=== PATIENT | male | born 1985 | race Caucasian/White ===

== ENCOUNTER 2016-06-25 13:28 | Outpatient (CLI) | payer OTHER | END 2016-06-25 13:29 | disposition home or self-care (01) | DX: G47.33 Obstructive sleep apnea (adult) (pediatric) (principal) ==

== ENCOUNTER 2016-08-07 13:06 | Outpatient (CLI) | payer OTHER | END 2016-08-07 13:07 | disposition home or self-care (01) | DX: G47.33 Obstructive sleep apnea (adult) (pediatric) (principal) ==

== ENCOUNTER 2016-10-16 13:12 | Outpatient (CLI) | payer OTHER | END 2016-10-16 13:13 | disposition home or self-care (01) | LOC: SC 13:12 | PROVIDERS: ATTEND Nurse Practitioner Family | DX: G47.33 Obstructive sleep apnea (adult) (pediatric) (principal) | CPT/HCPCS: 99212; 99214 ==

== ENCOUNTER 2018-03-20 20:40 | Emergency (ER) | payer OTHER ==
--- NOTE | 2018-03-20 22:50 | ED Physician Documentation ---
PD HPI HEENT - Stated complaint Stated Complaint: FACE SWELLING - Chief complaint Chief Complaint: Heent - History obtained from History obtained from: Patient - History of Present Illness Timing - onset: How many days ago (2) Timing - duration: Days Timing - details: Gradual onset, Constant Pain level now: 4 Location: Other (right periorbit) Associated symptoms: No: Fever Similar symptoms before: Has not had sx before Recently seen: Not recently seen - Additional information Additional information: c/o 2 days gradual onset, progressive swelling, tenderness of right supraorbit Review of Systems Constitutional: reports: Reviewed and negative Eyes: reports: Other (right supraorbital pain, swelling). denies: Loss of vision, Decreased vision, Photophobia, Discharge PD PAST MEDICAL HISTORY - Past Medical History Cardiovascular: None Respiratory: None Endocrine/Autoimmune: None GI: None : None HEENT: None Psych: Post traumatic stress disorder Musculoskeletal: None Derm: Other - Past Surgical History Past Surgical History: No General: Appendectomy - Present Medications Home Medications: Ambulatory Orders Medication Instructions Recorded Confirmed Cephalexin [Keflex] 500 mg PO Q6HR #27 capsule 03/20/18 Sertraline [Zoloft] 150 mg PO DAILY 03/20/18 03/20/18 Sulfamethox/Trimeth 800/160 1 each PO BID #13 tablet 03/20/18 [Bactrim Ds 800/160] - Allergies Allergies/Adverse Reactions: Allergies Allergy/AdvReac Type Severity Reaction Status Date / Time latex Allergy Rash Verified 03/20/18 20:47 tetanus Allergy Unknown Uncoded 03/20/18 20:47 - Social History Does the pt smoke?: Yes Smoking Status: Current every day smoker Does the pt drink ETOH?: Yes Does the pt have substance abuse?: No - Immunizations Immunizations are current?: Yes PD ED PE NORMAL - Vitals Vital signs reviewed: Yes - General General: Alert and oriented X 3, No acute distress, Well developed/nourished - HEENT HEENT: PERRL, EOMI PD ED PE EXPANDED - HEENT HEENT Visual: 1 - rash (faint erythema), swelling, tenderness Results - Vitals Vitals: Vital Signs - 24 hr 03/20/18 03/20/18 20:44 23:22 Temperature 36.4 C L Heart Rate 77 68 Respiratory 16 18 Rate Blood Pressure 144/91 H 132/68 H O2 Saturation 97 98 Oxygen O2 Source Room air PD MEDICAL DECISION MAKING - ED course Complexity details: considered differential, d/w patient ED course: suspect small, focal abscess; can palpate margins, and it is less than 1cm diameter, very small and thus will not attempt I+D at this time. will try PO abx. there is a small, crusted raised papule at the medial margin of the eyebrow, raising possibility of shingles, but would not diagnose and treat as such with only these two lesions Departure - Departure Disposition: 01 Home, Self Care Clinical Impression: Periorbital cellulitis of right eye Condition: Good Instructions: ED Cellulitis Facial, ED Cellulitis Lucy Orbital Follow-Up: Edison Gómez DO [Primary Care Provider] - (3-4 days if not improving) Prescriptions: Cephalexin [Keflex] 500 mg PO Q6HR #27 capsule Sulfamethox/Trimeth 800/160 [Bactrim Ds 800/160] 1 each PO BID #13 tablet Discharge Date/Time: 03/20/18 23:23
[2018-03-20] MEDS ORDERED: SULFAMETH/TRIMETH DS 800/160 MG TABLET PO STA (23:09)
[2018-03-20] MEDS ORDERED: cephALEXin 250 MG CAPSULE PO STA (23:09)
[2018-03-20 23:22] VITALS: BP 132/68
== END 2018-03-20 23:23 | disposition home or self-care (01) ==
LOC: ED 20:40
DX: L03.213 Periorbital cellulitis (principal); F17.200 Nicotine dependence, unspecified, uncomplicated
CPT/HCPCS: 99283; A9270

== ENCOUNTER 2018-12-09 13:39 | Outpatient (CLI) | payer OTHER | END 2018-12-09 13:40 | disposition home or self-care (01) | LOC: SC 13:39 | PROVIDERS: ATTEND Nurse Practitioner Family | DX: G47.33 Obstructive sleep apnea (adult) (pediatric) (principal) | CPT/HCPCS: 99212; 99214 ==

== ENCOUNTER 2021-04-19 08:27 | Outpatient (CLI) | payer OTHER ==
[2021-04-19 09:08] VITALS: BP 140/87
--- NOTE | 2021-04-19 09:08 | SLEEP CARE CONSULTATION ---
Information from patient questionnaire entered by Perry Miranda MA. I have reviewed and concur with the information entered by Perry Miranda MA. This document represents the service I personally performed and the decisions made by , Irma Menon ARNP. History of Present Illness Service Date and Time: 04/19/2021 0827 Previous diagnosis: Mild, Obstructive Sleep Apnea-Hypopnea Syndrome AHI: 5.1 (11/2018 [facility]) Reason for follow up: annual Equipment type: CPAP Equipment obtained from: [facility] Mask style: Nasal Mask brand: Respironics Backup mask available: Yes (old mask) Last cushion change: 1 month Prior sleep studies: Yes Year and Where: [facility], [place] 2015 Type of Sleep Study: Polysomnography HPI additional information: FABIOLA SZYMANSKI was diagnosed to have mild, AHI 5.1, obstructive sleep apnea- hypopnea syndrome and returned today for CPAP therapy annual follow-up. CPAP Compliance Data - Data Reviewed with Patient Average duration of nightly device use: 7 hours 9 minutes Compliance rate %: 98.3 Current pressure setting (cmH2O): 10-12 Average residual AHI: 1.0 Central apnea: 0.1 Obstructive apnea: 0.4 Average large leak: 5 seconds Subjective Patient concerns: reports: air blowing in eyes (occasional when rolling in bed, adjusment helps), mask leak noise, dry mouth, nose, throat (usually after working in ema environment). denies: aerophagia, mask discomfort, condensation in mask/hose, nasal congestion, epistaxis, other Observed to snore while using device: No Current pressure setting perceived as: comfortable On therapy, patient: reports: sleeping better, awakening more refreshed, being more awake and alert during the day, more rested overall. denies: drowsiness while driving Initial [place] Sleepiness Scale score: 14 Current [place] Sleepiness Scale score: 13 Allergies and Home Medications Home medication list reviewed: Yes (no changes) Review of Systems Review of systems same as previous: Yes (no changes) Physical Exam Vital signs obtained and entered by: MICHELLE Balderas Blood Pressure: 140/87 (left) Cuff size: wrist Heart Rate: 80 O2 Saturation: 97 (with mask) Height: 6 ft 2 in Weight: 225 lb (with boots ) Body Mass Index: 28.8 BMI Classification: Overweight Impression and Plan 1. Obstructive Sleep Apnea-Hypopnea Syndrome, mild, with good treatment compliance and good apnea control. On CPAP therapy, the patient has better sleep quality and is more rested overall. He occasionally gets a dry mouth but states this is usually when he has been working out in the ema her all day. He has a history of hayfever. He will shower before bed but find his mouth very dry the next morning. He does not normally use his humidifier, does not like heated air on his face. He was advised to use nasal saline before bed on these nights as this may be from allergies causing enough nasal congestion to cause some oral venting those night. He voiced understanding. Patient has a Dreamstation by [employer]. I informed the patient that [employer] has a recall on several devices like the patients machine. Patient was encouraged to register their device online with [employer] for the recall to see if their device is affected. If their device is affected they should start a claim. Patient denies any black particles seen in machine or hoses, any unusual odors coming from device. Patient has not experienced any physical symptoms such as upper airway irritation, headache, skin or eye irritation, asthma, nausea/vomiting, difficulty breathing or chest pain. If patient is not able to sleep due to waking up choking, gasping for air or other respiratory distress that they may decide to continue using it until it is either replaced or repaired. Since the patients current machine is at least 5 years old the patient is opting to update their device with a device that is not on the recall. Patient voiced understanding and agreement with plan. Patient's apnea severity and rationale for treatment to reduce apnea, improve sleep quality and reduce cardiovascular and cerebrovascular events was reviewed. I also reviewed the benefit of consistent device use of CPAP for PTSD and mood disorder. Patient was encouraged to lose weight for their overall health and to reduce apneas. * Continue auto CPAP pressure at 10-12 cmH2O * Update device * Update supplies * Notify me if snoring with mask or feeling that the pressure is too much or too little * Attempt to lose weight * Call this office if any problems using CPAP * Return for follow up one month after obtaining new device, or sooner if concerns arise Counseling Topics: Spare mask, Weight loss health impact Visit Type: In Office Time Spent with Patient (minutes): 24 Provider Statement: I spent 100% of the Face to Face Visit with the patient with greater than 50% spent counseling the patient and coordination of care.
== END 2021-04-19 08:28 | disposition home or self-care (01) ==
LOC: SC 08:27
PROVIDERS: ATTEND Nurse Practitioner Family
DX: G47.33 Obstructive sleep apnea (adult) (pediatric) (principal)
CPT/HCPCS: 99212; 99213

== ENCOUNTER 2023-06-06 21:33 | Emergency (ER) | payer OTHER ==
[2023-06-06 21:47] VITALS: BP 142/69; O2SAT 100
--- NOTE | 2023-06-06 22:06 | ED Physician Documentation ---
History of Present Illness - Stated complaint Stated Complaint: RT THUMB INJ - Chief complaint Chief Complaint: Ext Problem - History obtained from History obtained from: Patient - Additonal information Additional information: 37-year-old right-handed man presents with smashed right first finger with blood accumulating underneath the fingernail. He and his tried to make a hole in the nail with a hot paperclip but it did not work. PD PAST MEDICAL HISTORY - Past Medical History Cardiovascular: None Respiratory: None Neuro: None Endocrine/Autoimmune: None GI: None : None HEENT: None Psych: Post traumatic stress disorder Musculoskeletal: None Derm: Other - Past Surgical History Past Surgical History: No General: Appendectomy Ortho: Arthroscopic surgery - Present Medications Home Medications: Ambulatory Orders Medication Instructions Recorded Confirmed No Known Home Medications 06/06/23 06/06/23 - Allergies Allergies/Adverse Reactions: Allergies Allergy/AdvReac Type Severity Reaction Status Date / Time latex Allergy Rash Verified 06/06/23 21:43 tetanus Allergy Unknown Uncoded 06/06/23 21:43 - Social History Does the pt smoke?: Yes Smoking Status: Current every day smoker Does the pt drink ETOH?: Yes Does the pt have substance abuse?: No - Immunizations Immunizations are current?: Yes - POLST Patient has POLST: No PD ED PE NORMAL - Vitals Vital signs reviewed: Yes - General General: Alert and oriented X 3, No acute distress, Well developed/nourished - HEENT HEENT: Atraumatic, PERRL, EOMI - Derm Derm: Normal color, Warm and dry - Extremities Extremities: No deformity, No tenderness to palpate, Other (Subungual hematoma to right first finger extending to about 50% of nail surface) Results - Vitals Vitals: Vital Signs - 24 hr 06/06/23 21:36 Temperature 36.6 C Heart Rate 86 Respiratory 17 Rate Blood Pressure 142/69 H O2 Saturation 100 Oxygen O2 Source Room air Procedures - General procedure General procedure: Nailbed trephination performed with electrocautery device to right first finger with release of about 2 cc of dark blood. Patient tolerated well PD Medical Decision Making - ED course ED course: 37-year-old man presents with subungual hematoma, trephinated without issue. It drained and he experienced relief. Plan to follow-up outpatient routinely with his primary care provider. Return precautions given. Departure - Departure Disposition: 01 Home, Self Care Clinical Impression: Subungual hematoma of finger Condition: Stable Instructions: ED Hematoma Subungual Comments: You were seen in the emergency department for smashed finger. A hole was made in the nail to allow blood to drain. Please follow-up with your primary care provider and return to the emergency department if you have any new or worsening symptoms or other concerns. Forms: PCP List Discharge Date/Time: 06/06/23 22:15
[2023-06-06] MEDS: KETOROLAC 30 MG/ML VIAL IM STA (22:22)
== END 2023-06-06 22:15 | disposition home or self-care (01) ==
LOC: ED 21:33
DX: S60.111A Contusion of right thumb with damage to nail, initial encounter (principal); X58.XXXA Exposure to other specified factors, initial encounter; F17.200 Nicotine dependence, unspecified, uncomplicated
CPT/HCPCS: 11740; 99283

== ENCOUNTER 2023-12-13 18:34 | Emergency (ER) | payer OTHER ==
[2023-12-13 18:48] VITALS: BP 130/86; O2SAT 99
--- NOTE | 2023-12-13 19:01 | ED Physician Documentation ---
History of Present Illness - Stated complaint Stated Complaint: THIGH SWELLING - Chief complaint Chief Complaint: General - History obtained from History obtained from: Patient - Additonal information Additional information: About 6 days ago developed some rash to the left groin especially and with more swelling in that area over the last couple of days. He feels achy with it. He has no history of herpes but his "soon-to-be" ex- does have HSV-2. PD PAST MEDICAL HISTORY - Past Medical History Past Medical History: Yes Cardiovascular: None Respiratory: None Neuro: None Endocrine/Autoimmune: None GI: None : None HEENT: None Psych: Post traumatic stress disorder Musculoskeletal: None Derm: Other - Past Surgical History Past Surgical History: No General: Appendectomy Ortho: Arthroscopic surgery - Present Medications Home Medications: Ambulatory Orders Medication Instructions Recorded Confirmed Valacyclovir HCl [Valtrex] 1,000 mg PO TID #30 tablet 12/13/23 - Allergies Allergies/Adverse Reactions: Allergies Allergy/AdvReac Type Severity Reaction Status Date / Time latex Allergy Rash Verified 12/13/23 18:46 tetanus Allergy Unknown Uncoded 12/13/23 18:46 - Social History Does the pt smoke?: Yes Smoking Status: Current every day smoker Does the pt drink ETOH?: Yes Does the pt have substance abuse?: No - Immunizations Immunizations are current?: Yes - POLST Patient has POLST: No PD ED PE NORMAL - Vitals Vital signs reviewed: Yes - General General: Alert and oriented X 3, No acute distress - Male Male : Other (The skin of the left hemiscrotum is swollen and reddened with innumerable vesicles. Testicles themselves are nontender with normal lie. There are also few vesicles on the shaft of the penis.) - Neuro Neuro: Alert and oriented X 3, Normal speech Results - Vitals Vitals: Vital Signs - 24 hr 12/13/23 18:41 Temperature 36.7 C Heart Rate 85 Respiratory 16 Rate Blood Pressure 130/86 H O2 Saturation 99 Oxygen O2 Source Room air PD Medical Decision Making - ED course ED course: He has left hemiscrotal swelling with a rash that looks herpetic. A PCR swab was done for confirmation but started on Valtrex. Departure - Departure Disposition: 01 Home, Self Care Clinical Impression: Groin rash Condition: Good Record reviewed to determine appropriate education?: Yes Instructions: ED Herpes Simplex Virus Type 2 Prescriptions: Valacyclovir HCl [Valtrex] 1,000 mg PO TID #30 tablet Comments: As discussed, this most consistent with a primary episode of genital herpes. A confirmatory swab has been obtained and should be available for you to look up in the hospital portal. Go to the hospital website at [email or web address] and sign up for the portal in the top right corner. Return for new or worsening symptoms. I sent your prescription electronically to [facility] in [place]. Forms: PCP List Discharge Date/Time: 12/13/23 19:08
== END 2023-12-13 19:08 | disposition home or self-care (01) ==
LOC: ED 18:34
DX: R21 Rash and other nonspecific skin eruption (principal); F17.200 Nicotine dependence, unspecified, uncomplicated
CPT/HCPCS: 87529; 99282; 99283

== ENCOUNTER 2023-12-14 10:12 | Emergency (ER) | payer OTHER ==
[2023-12-14 10:34] VITALS: O2SAT 99
[2023-12-14 11:57] LABS: BASOPHILS % (AUTO) 0.4 %; EOSINOPHILS # (AUTO) 0.4 10^3/uL (0.0-0.7); EOSINOPHILS % (AUTO) 5.1 %; HCT - HEMATOCRIT 43.9 % (42.0-52.0); HGB - HEMOGLOBIN 14.2 g/dL (14.0-18.0); LYMPHOCYTES # (AUTO) 1.5 10^3/uL (1.5-3.5); LYMPHOCYTES % (AUTO) 17.5 %; MEAN CORPUSCULAR HEMOGLOBIN 29.6 pg (27.0-31.0); MEAN CORPUSCULAR HGB CONC 32.3 g/dL (32.0-36.0); MEAN CORPUSCULAR VOLUME 91.5 fL (80.0-94.0); MONOCYTES # (AUTO) 1.3 10^3/uL (0.0-1.0); MONOCYTES % (AUTO) 15.3 %; NEUTROPHILS # (AUTO) 5.3 10^3/uL (1.5-6.6); NEUTROPHILS % (AUTO) 61.5 %; PLT - PLATELET COUNT 179 10^3/uL (130-450); RED CELL DISTRIBUTION WIDTH 12.7 % (12.0-15.0); WHITE BLOOD COUNT 8.6 x10^3/uL (4.8-10.8)
[2023-12-14] MEDS: HYDROmorphone 1 MG/ML CARPUJECT IVP STA (12:03)
[2023-12-14] MEDS: cefTRIAXone 1 GM VIAL IVP STA (12:04)
[2023-12-14 12:13] LABS: ALBUMIN 4.5 g/dL (3.2-5.5); ALBUMIN/GLOBULIN RATIO 1.7 (1.0-2.2); ALKALINE PHOSPHATASE 49 IU/L (42-121); ALT ALANINE AMINOTRANSFERASE 13 IU/L (10-60); AST ASPARTATE AMINOTRANSFERASE 12 IU/L (10-42); BILIRUBIN,TOTAL 0.6 mg/dL (0.2-1.0); BUN - BLOOD UREA NITROGEN 16 mg/dL (6-20); CALCIUM 9.9 mg/dL (8.5-10.3); CARBON DIOXIDE - CO2 30 mmol/L (21-32); CHLORIDE 103 mmol/L (101-111); CREATININE 0.9 mg/dL (0.6-1.3); GFR - MDRD 94 (>89); GLUCOSE 87 mg/dL (74-104); POTASSIUM 4.5 mmol/L (3.5-4.5); SODIUM 137 mmol/L (135-145); TOTAL PROTEIN 7.2 g/dL (6.4-8.9)
[2023-12-14 12:14] LABS: LIPASE < 10 U/L (11-82)
[2023-12-14] MEDS ORDERED: iohexoL-300 100 ML VIAL ONE (12:44)
[2023-12-14] MEDS: iohexoL-300 100 ML VIAL IVP ONE (13:08)
--- NOTE | 2023-12-14 13:18 | CT Report ---
PROCEDURE: Pelvis W INDICATIONS: scrotal swelling/pain CONTRAST: 100ml omni 300 TECHNIQUE: After the administration of intravenous contrast, a CT scan of the pelvis was performed. Images were recorded and evaluated at appropriate window settings. Reformats: axial MIP of the chest, coronal an d sagittal. For radiation dose reduction, the following was used: automated exposure control, adjustm ent of mA and/or kV according to patient size. COMPARISON: 02/19/2014 FINDINGS: Image quality: Excellent. Bowel and peritoneum: No bowel distension. No pathologic free fluid. 3, please correlate with known p atient history. Vessels: No infrarenal aortic aneurysm. Reproductive organs: Generalized scrotal swelling can be seen, with generalized inflammatory change i nvolving the medial aspects of both groins, left worse than right. Bilateral hydroceles are seen. Scr otal skin thickening can be seen. No alena soft tissue gas can be seen. Bladder: No abnormal wall thickening, accounting for underdistention. Pelvic lymph nodes: Enlarged groin lymph nodes are seen, including a left groin lymph node on series 4 image 70 measuring 14 x 19 mm in greatest axial dimension. Bones: No aggressive osseous abnormality. Other: No significant ventral or inguinal hernia. IMPRESSION: Bilateral hydroceles an abnormal scrotal swelling can be seen, with scrotal skin thickening. Generali zed inflammatory change can be seen involving the surrounding soft tissues, including involving both groins, left worse than right. Associated mildly enlarged groin lymph nodes are seen. No alena soft tissue gas can be seen. Reviewed by: Antonio Haro MD on 12/14/2023 12:16 PM [facility] Approved by: Antonio Haro MD on 12/14/2023 12:16 PM [facility] Station ID: [id number]
--- NOTE | 2023-12-14 13:38 | ED Physician Documentation ---
History of Present Illness - Stated complaint Stated Complaint: MALE - Chief complaint Chief Complaint: General - History obtained from History obtained from: Patient - History of Present Illness Timing: How many days ago (3) Pain level max: 9 Pain level now: 9 - Additonal information Additional information: 38-year-old male was seen here yesterday diagnosed with a herpes infection of the scrotum, returns today with worsening pain and swelling. No fevers. No chills. Worse with palpation and movement. Has not had similar symptoms previously. He states he did start the Valtrex. No abdominal pain, nausea, vomiting. No dysuria or urinary symptoms. No rectal pain. Review of Systems Constitutional: denies: Fever, Chills Respiratory: denies: Cough GI: denies: Vomiting, Diarrhea Skin: denies: Rash Musculoskeletal: denies: Neck pain, Back pain Neurologic: denies: Headache PD PAST MEDICAL HISTORY - Past Medical History Cardiovascular: None Respiratory: None Neuro: None Endocrine/Autoimmune: None GI: None : None HEENT: None Psych: Post traumatic stress disorder Musculoskeletal: None Derm: Other - Past Surgical History Past Surgical History: No General: Appendectomy Ortho: Arthroscopic surgery - Present Medications Home Medications: Ambulatory Orders Medication Instructions Recorded Confirmed Valacyclovir HCl [Valtrex] 1,000 mg PO TID #30 tablet 12/13/23 Sulfamethox/Trimeth 800/160 1 each PO BID #20 tablet 12/14/23 [Bactrim Ds 800/160] cephALEXin [Keflex] 500 mg PO Q6H #40 cap 12/14/23 oxyCODONE [Roxicodone] 5 - 10 mg PO Q6H PRN #20 tablet 12/14/23 MDD 6 - Allergies Allergies/Adverse Reactions: Allergies Allergy/AdvReac Type Severity Reaction Status Date / Time latex Allergy Rash Verified 12/14/23 10:28 tetanus Allergy Unknown Uncoded 12/14/23 10:28 - Social History Does the pt smoke?: Yes Smoking Status: Current every day smoker Does the pt drink ETOH?: Yes Does the pt have substance abuse?: No - Immunizations Immunizations are current?: Yes - POLST Patient has POLST: No PD ED PE NORMAL - Vitals Vital signs reviewed: Yes - General General: Alert and oriented X 3, No acute distress - HEENT HEENT: Moist mucous membranes - Neck Neck: Supple, no meningeal sign - Cardiac Cardiac: RRR - Respiratory Respiratory: No respiratory distress, Clear bilaterally - Abdomen Abdomen: Soft, Non tender, Non distended - Male Male : Other (Swollen diffusely erythematous scrotum. No crepitus. There is a small amount of diffuse purulent discharge from the scrotal miguel.) - Back Back: No CVA TTP, No spinal TTP - Derm Derm: Warm and dry - Neuro Neuro: Alert and oriented X 3 - Psych Psych: Normal mood, Normal affect Results - Vitals Vitals: Vital Signs - 24 hr 12/14/23 12/14/23 10:28 14:14 Temperature 36.4 C L Heart Rate 80 78 Respiratory 18 16 Rate Blood Pressure 131/79 H 131/70 H O2 Saturation 99 99 Oxygen O2 Source Room air - Labs Labs: Laboratory Tests 12/14/23 12/14/23 11:43 11:43 WBC 8.6 RBC 4.80 Hgb 14.2 Hct 43.9 MCV 91.5 MCH 29.6 MCHC 32.3 RDW 12.7 Plt Count 179 MPV 10.0 Neut # (Auto) 5.3 Lymph # (Auto) 1.5 Jefferson # (Auto) 1.3 H Eos # (Auto) 0.4 Baso # (Auto) 0.0 Absolute Nucleated RBC 0.00 Nucleated RBC % 0.0 Sodium 137 Potassium 4.5 Chloride 103 Carbon Dioxide 30 Anion Gap 4.0 L BUN 16 Creatinine 0.9 Estimated GFR (MDRD) 94 Glucose 87 Calcium 9.9 Total Bilirubin 0.6 AST 12 ALT 13 Alkaline Phosphatase 49 Total Protein 7.2 Albumin 4.5 Globulin 2.7 Albumin/Globulin Ratio 1.7 Lipase < 10 L - Rads (name of study) CT pelvis Relevant Findings:: Final report received, See rad report PD Medical Decision Making - ED course Complexity details: reviewed results, re-evaluated patient, considered wendy bell d/w patient ED course: Normal white blood cell count. No evidence of deep face infection on CT of the pelvis. Afebrile. Given IV Rocephin here. Given IV Dilaudid. Pain well- controlled. We will add antibiotics to the Valtrex for what appears to be a secondary infection. We will prescribe pain medication for home as well. As it is Saturday and we will be unable to arrange timely follow-up, we will have him return on Saturday for a recheck to ensure that things are improving as expected. Patient counseled regarding signs and symptoms for which I believe an d urgent re-evaluation would be necessary. Patient with good understanding of and agreement to plan and is comfortable going home at this time This document was made in part using voice recognition software. While efforts are made to proofread this document, sound alike and grammatical errors may occur. Departure - Departure Disposition: Home, Self Care Clinical Impression: Cellulitis of scrotum Condition: Good Instructions: ED Infec Skin Cellulitis Follow-Up: Jose L Perez MD [Provider Admit Priv/Credential] - Prescriptions: Sulfamethox/Trimeth 800/160 [Bactrim Ds 800/160] 1 each PO BID #20 tablet cephALEXin [Keflex] 500 mg PO Q6H #40 cap oxyCODONE [Roxicodone] 5 - 10 mg PO Q6H PRN #20 tablet MDD 6 PRN Reason: pain Comments: Your prescriptions were sent to [facility] in [place]. Please return here on Saturday for a recheck. Return sooner if worsening including worsening pain, fevers or other new or worrisome symptoms. Take all antibiotics until gone. I am prescribing a short course of narcotic pain medication for you. These are potentially dangerous and addictive medications that should be used carefully. These medications may constipate you. Take an [id number] stool softener (docusate) twice daily with plenty of water while taking these medications. If you go 24 hours without a bowel movement, take [id number] miralax, per [facility] justin instructions. Do not drink or drive while taking these medications. If you received narcotic or sedating medications while in the emergency department, do not drive for 24 hours. Store this medication in a safe, secure place and out of reach of children. It is a violation of federal law to give or sell this medication to another person or to use in a manner other than prescribed. The ED will not refill narcotic prescriptions, including prescriptions lost or stolen. To dispose of unwanted medications: 1. [facility] [address] in [place] has a medication drop box. They accept prescription medications (in pill form) Saturday through Saturday 9:00 a.m. to 5:00 p.m. 2. The [facility] [employer] accepts prescription medications (in pill form only) for disposal year round. Call for more information. 3. Contact the [facility] for the next [facility] sponsored prescription drug collection event. , [phone], or [phone]; Forms: PCP List Discharge Date/Time: 12/14/23 14:15
[2023-12-14] MEDS: oxyCODONE 5 MG TABLET PO STA (14:03)
[2023-12-14 14:21] VITALS: BP 131/70
== END 2023-12-14 14:15 | disposition home or self-care (01) ==
LOC: ED 10:12
DX: N49.2 Inflammatory disorders of scrotum (principal); A60.02 Herpesviral infection of other male genital organs; F17.200 Nicotine dependence, unspecified, uncomplicated
CPT/HCPCS: 36415; 72193; 80053; 83690; 85025; 96374; 96375; 99283; 99284; A9270; J1170; Q9967

== ENCOUNTER 2023-12-15 20:39 | Emergency (ER) | payer OTHER ==
[2023-12-15 21:44] VITALS: BP 141/76; O2SAT 99
[2023-12-15 22:31] LABS: BASOPHILS % (AUTO) 0.4 %; EOSINOPHILS # (AUTO) 0.6 10^3/uL (0.0-0.7); HCT - HEMATOCRIT 44.2 % (42.0-52.0); HGB - HEMOGLOBIN 14.6 g/dL (14.0-18.0); LYMPHOCYTES % (AUTO) 24.5 %; MEAN CORPUSCULAR VOLUME 90.8 fL (80.0-94.0); MEAN PLATELET VOLUME 9.8 fL (7.4-11.4); MONOCYTES # (AUTO) 0.9 10^3/uL (0.0-1.0); MONOCYTES % (AUTO) 11.5 %; NEUTROPHILS # (AUTO) 4.5 10^3/uL (1.5-6.6); NEUTROPHILS % (AUTO) 56.3 %; PLT - PLATELET COUNT 204 10^3/uL (130-450); RED BLOOD COUNT 4.87 10^6/uL (4.70-6.10); RED CELL DISTRIBUTION WIDTH 12.4 % (12.0-15.0)
--- NOTE | 2023-12-15 22:54 | ED Physician Documentation ---
PD HPI SKIN - Stated complaint Stated Complaint: BILAT THIGH SKIN SWELLING - Chief complaint Chief Complaint: Wound - History obtained from History obtained from: Patient - Additional information Additional information: Patient returns to the emergency department chief complaint of fluctuating redness on his bilateral lower extremities since about 3 days ago. He was seen in the emergency department 2 days ago and diagnosed with genital herpes at that time. He has been on acyclovir, Bactrim and Keflex since then. He is taking oxycodone at home which helps somewhat but has not been giving him great pain control. He states his scrotum has been quite swollen throughout this process and he has not been up doing much but mostly, just laying down. Patient states he has had some shaking chills but has not measured a temperature at home. He was concerned because when he got out of the shower today, he noticed the redness to the spread quite a bit down his left thigh whereas it had just been in the band up by his inguinal area before. He states the redness has shrunk down again. No other complaints at this time. PD PAST MEDICAL HISTORY - Past Medical History Past Medical History: Yes Cardiovascular: None Respiratory: None Neuro: None Endocrine/Autoimmune: None GI: None : None HEENT: None Psych: Post traumatic stress disorder Musculoskeletal: None Derm: Other - Past Surgical History Past Surgical History: Yes General: Appendectomy Ortho: Arthroscopic surgery - Present Medications Home Medications: Ambulatory Orders Medication Instructions Recorded Confirmed Valacyclovir HCl [Valtrex] 1,000 mg PO TID #30 tablet 12/13/23 Sulfamethox/Trimeth 800/160 1 each PO BID #20 tablet 12/14/23 [Bactrim Ds 800/160] cephALEXin [Keflex] 500 mg PO Q6H #40 cap 12/14/23 oxyCODONE [Roxicodone] 5 - 10 mg PO Q6H PRN #20 tablet 12/14/23 MDD 6 Oxycodone HCl/Acetaminophen 1 - 2 tab PO Q4H PRN #12 tab 12/15/23 [Oxycodone-Acetaminophen 5-325] - Allergies Allergies/Adverse Reactions: Allergies Allergy/AdvReac Type Severity Reaction Status Date / Time latex Allergy Rash Verified 12/17/23 13:19 tetanus Allergy Unknown Uncoded 12/17/23 13:19 - Social History Does the pt smoke?: Yes Smoking Status: Current every day smoker Does the pt drink ETOH?: Yes Does the pt have substance abuse?: No - Immunizations Immunizations are current?: Yes - POLST Patient has POLST: No PD ED PE NORMAL - Vitals Vital signs reviewed: Yes - General General: Alert and oriented X 3, No acute distress - HEENT HEENT: Atraumatic - Neck Neck: Supple, no meningeal sign - Respiratory Respiratory: No respiratory distress - Male Male : Other (Normal male genital anatomy. Scattered lesions on scrotum, with some scrotal swelling and erythema. No penile edema. Mild, symmetrical, blotchy erythema involving both proximal thighs. No induration.) - Derm Derm: Warm and dry, Other (erythema of scrotum and thighs as above.) - Extremities Extremities: No deformity - Neuro Neuro: Alert and oriented X 3 - Psych Psych: Normal mood, Normal affect Results - Vitals Vitals: Oxygen O2 Source Room air - Labs Labs: Laboratory Tests 12/15/23 22:26 WBC 8.0 RBC 4.87 Hgb 14.6 Hct 44.2 MCV 90.8 MCH 30.0 MCHC 33.0 RDW 12.4 Plt Count 204 MPV 9.8 Neut # (Auto) 4.5 Lymph # (Auto) 2.0 Randall # (Auto) 0.9 Eos # (Auto) 0.6 Baso # (Auto) 0.0 Absolute Nucleated RBC 0.00 Nucleated RBC % 0.0 PD Medical Decision Making - ED course Complexity details: reviewed old records, reviewed results, re-evaluated patient, considered differential, d/w patient ED course: The pt's findings were fairly symmetrical, and he was already on double antibiotic therapy with Bactrim and Keflex. Furthermore, he did not have any systemic sx, and reported the area of erythema shrinking again since his shower. His CBC showed continuance of a normal WBC count, which was actually slightly lower than last time. He already had imaging to evaluate for necrotizing infection or abscess. I d/w pt there is no role for change in antibiotics or any other aspect of the treatment. The pt needs more time on his current plan to see a turnaround in sx. I have referred him to Dr. Perez for urological follow-up. Departure - Departure Disposition: 01 Home, Self Care Clinical Impression: Genital herpes in men Condition: Stable Instructions: ED Herpes Simplex Virus Type 2 Follow-Up: Jose L Perez MD [Provider Admit Priv/Credential] - Prescriptions: Oxycodone HCl/Acetaminophen [Oxycodone-Acetaminophen 5-325] 1 - 2 tab PO Q4H PRN #12 tab PRN Reason: Pain 5-7 Comments: Your white blood cell count is unchanged from a couple of days ago. The redness has fluctuated somewhat throughout the course of this illness and at this point, does not have the typical appearance of a bacterial infection. I do not think at this point that antibiotics are going to be helpful. Because herpes is a virus, it needs to for the most part run its course and it is largely up to your body to fight it off. The antivirals do help, but antibiotics are unhelpful because these are only useful for bacterial infections. Please continue to take your pain medication at home as needed. You can take up to 2 tablets of your oxycodone every 4 hours as needed for pain. Please call Dr. Perez's office in the morning to set up a follow-up appointment with urology to address further concerns. You have been given a narcotic pain medication tonight and should not drive for the next 8 hours. Forms: PCP List Discharge Date/Time: 12/15/23 23:34
[2023-12-15] MEDS: KETOROLAC 60 MG/2 ML VIAL IM STA (23:08)
[2023-12-15] MEDS: HYDROmorphone 1 MG/ML CARPUJECT IM STA (23:09)
== END 2023-12-15 23:34 | disposition home or self-care (01) ==
LOC: ED 20:39
DX: A60.02 Herpesviral infection of other male genital organs (principal); F17.200 Nicotine dependence, unspecified, uncomplicated
CPT/HCPCS: 36415; 85025; 96372; 99283; J1170

== ENCOUNTER 2023-12-17 12:42 | Emergency (ER) | payer OTHER ==
--- NOTE | 2023-12-17 14:36 | ED Physician Documentation ---
PD HPI SKIN - Stated complaint Stated Complaint: FOLLOW UP FOR CELLULITIS - Chief complaint Chief Complaint: Wound - Additional information Additional information: 38-year-old male presents emergency department for checkup. Patient says that he has been here multiple times. Patient is currently on Keflex, Bactrim, valacyclovir for herpes outbreak that has caused skin infection.. Patient has been seen in the emergency department a multitude of times within the last week. He says overall that his swelling, erythema and pain has significantly improved since his last ER visit and he was just able to get an appointment with Dr. Perez, urology for tomorrow. Says he had been having hot flashes at home has not been able to catch any fevers or chills. PD PAST MEDICAL HISTORY - Past Medical History Past Medical History: Yes Cardiovascular: None Respiratory: None Neuro: None Endocrine/Autoimmune: None GI: None : None HEENT: None Psych: Post traumatic stress disorder Musculoskeletal: None Derm: Other - Past Surgical History Past Surgical History: No General: Appendectomy Ortho: Arthroscopic surgery - Present Medications Home Medications: Ambulatory Orders Medication Instructions Recorded Confirmed Valacyclovir HCl [Valtrex] 1,000 mg PO TID #30 tablet 12/13/23 Sulfamethox/Trimeth 800/160 1 each PO BID #20 tablet 12/14/23 [Bactrim Ds 800/160] cephALEXin [Keflex] 500 mg PO Q6H #40 cap 12/14/23 oxyCODONE [Roxicodone] 5 - 10 mg PO Q6H PRN #20 tablet 12/14/23 MDD 6 Oxycodone HCl/Acetaminophen 1 - 2 tab PO Q4H PRN #12 tab 12/15/23 [Oxycodone-Acetaminophen 5-325] - Allergies Allergies/Adverse Reactions: Allergies Allergy/AdvReac Type Severity Reaction Status Date / Time latex Allergy Rash Verified 12/17/23 13:19 tetanus Allergy Unknown Uncoded 12/17/23 13:19 - Social History Does the pt smoke?: Yes Smoking Status: Current every day smoker Does the pt drink ETOH?: Yes Does the pt have substance abuse?: No - Immunizations Immunizations are current?: Yes - POLST Patient has POLST: No PD ED PE NORMAL - Vitals Vital signs reviewed: Yes - General General: Alert and oriented X 3, No acute distress, Well developed/nourished - Derm Derm: Other (Scrotal erythema and bilateral erythema to upper thigh region. Erythema does not have defined borders.) Results - Vitals Vitals: Vital Signs - 24 hr 12/17/23 12/17/23 13:14 15:01 Temperature 36.7 C 36.6 C Heart Rate 81 78 Respiratory 19 16 Rate Blood Pressure 144/72 H 138/72 H O2 Saturation 99 100 Oxygen O2 Source Room air - Labs Labs: Laboratory Tests 12/17/23 14:58 Urine Color YELLOW Urine Clarity CLEAR Urine pH 6.5 Ur Specific [place] 1.020 Urine Protein NEGATIVE Urine Glucose (UA) NEGATIVE Urine Ketones NEGATIVE Urine Occult Blood NEGATIVE Urine Nitrite NEGATIVE Urine Bilirubin NEGATIVE Urine Urobilinogen 0.2 (NORMAL) Ur Leukocyte Esterase NEGATIVE Ur Microscopic Review NOT INDICATED Urine Culture Comments NOT INDICATED PD Medical Decision Making - ED course ED course: 38-year-old male presents emergency department for check-in. He has been on Keflex, Bactrim, Valtrex. He was told that he does not need to continue the Keflex or Bactrim by last ER physician but patient says that he wanted to continue these antibiotics out of concern for possible cellulitis caused by genital herpes. He says overall he feels like the swelling and the pain is significantly improved although he continues to have some scrotal swelling. He says that he has been having some cloudy urine urinalysis does not show any leukocytes or nitrates not indicative of a urinary tract infection. Patient has an appointment with Dr. Perez tomorrow, [facility] urology I do not think there is any further medications that need to be changed overall I think he is doing better no further interventions warranted from the emergency department. Departure - Departure Disposition: 01 Home, Self Care Clinical Impression: Herpes genitalia, Scrotal swelling Instructions: Herpes Care Sores Comments: Thank you for trusting us with your care. We will call you with your urinalysis results. I think is very important that you follow-up with Dr. Perez tomorrow let him know about your ongoing scrotal swelling. Please come back and if you are starting to have any worsening symptoms. Attempt to try to capture your temperature when you are having your hot flashes to see if you are spiking a true fever. Forms: PCP List Discharge Date/Time: 12/17/23 15:01
[2023-12-17 15:08] LABS: BILIRUBIN,URINE NEGATIVE (NEGATIVE); CLARITY,URINE CLEAR (CLEAR); GLUCOSE, URINE (UA) NEGATIVE (NEGATIVE); KETONES,URINE (UA) NEGATIVE (NEGATIVE); LEUKOCYTE ESTERASE, URINE NEGATIVE (NEGATIVE); NITRITE,URINE NEGATIVE (NEGATIVE); OCCULT BLOOD,URINE NEGATIVE (NEGATIVE); PH,URINE 6.5 PH (5.0-7.5); PROTEIN,URINE NEGATIVE (NEGATIVE); UROBILINOGEN,URINE 0.2 (NORMAL) E.U./dL (NORMAL)
[2023-12-17 15:13] VITALS: BP 138/72; O2SAT 100
== END 2023-12-17 15:01 | disposition home or self-care (01) ==
LOC: ED 12:42
DX: A60.02 Herpesviral infection of other male genital organs (principal); N49.2 Inflammatory disorders of scrotum; F17.200 Nicotine dependence, unspecified, uncomplicated
CPT/HCPCS: 81001; 81003; 87086; 99282; 99283